=== PATIENT | female | born 1965 | race Caucasian/White ===

== ENCOUNTER → 2016-04-09 | Outpatient (CLI) | payer OTHER ==
--- NOTE | 2016-04-10 07:48 | CT ---
EXAMINATION TYPE: CT chest w con DATE OF EXAM: 04/09/2016 7:26 PM COMPARISON: 10/09/2015 HISTORY: Cough x [address] DLP: 400.00 mGycm, Automated exposure control for dose reduction was used. CONTRAST: Performed injected with 100 mL of Omnipaque 300. TECHNIQUE: Axial images were obtained at 5 mm thick sections. Reconstructed images are reviewed on [facility] computer in the coronal plane. FINDINGS: Portion of the thyroid visualized is normal. No suspicious lung nodules or focal infiltrates are present. Previous nodule within the right midlung superior segment lower lobe, series 3 image 27 lung windows measures 0.4 cm and appears unchanged. No enlarged mediastinal or hilar adenopathy is evident. Some left axillary adenopathy is present. T ascending aorta diameter at the level of the main pulmonary artery is 3.5 cm. The main pulmonary artery diameter at the bifurcation is 2.[address] sections are obtained through the upper abdomen. Multiple hypodensities are scattered with in the liver compatible with hepatic cysts. The largest at the anterior right medial lobe measures 2. 0 cm and 9 multiple additional smaller hypodensities are present to small to reliably classify as sim ple cysts but appears stable from October 02, 2015. Hounsfield units. IMPRESSIONS: 1. Normal Chest CT. 2. Probable hepatic cysts, stable from October 02, 2015 this could be monitored with ultrasound.
== END | disposition home or self-care (01) ==
LOC: RADCTMAIN 18:36
PROVIDERS: ATTEND Internal Medicine
DX: R05 Cough (principal)
CPT/HCPCS: 71260; Q9967

== ENCOUNTER → 2016-06-11 | Outpatient (CLI) | payer OTHER ==
[2016-06-11 14:40] LABS: Basophils % (A) 0 %; CH 31.3; CHCM 33.3; Eosinophils # (A) 0.1 k/uL (0-0.7); Eosinophils % (A) 1 %; HCT 43.3 % (34.0-46.0); HDW 2.31; HGB 14.5 gm/dL (11.4-16.0); Luc # (Auto) 0.15; Luc % (Auto) 2; Lymphocytes # (A) 1.5 k/uL (1.0-4.8); Lymphocytes % (A) 22 %; MCH 31.6 pg (25.0-35.0); MCHC 33.5 g/dL (31.0-37.0); MCV 94.4 fL (80.0-100.0); Mean Platelet Volume 7.5; Monocytes # (A) 0.4 k/uL (0-1.0); Monocytes % (A) 5 %; Neutrophils # (A) 4.9 k/uL (1.3-7.7); Neutrophils % (A) 70 %; RBC 4.59 m/uL (3.80-5.40); RDW 12.5 % (11.5-15.5); WBC (Perox) 7.43
[2016-06-12 13:42] LABS: Alternaria alternata IgE <0.35 kU/L (<0.35); Asperg. fumagatus IgE <0.35 kU/L (<0.35); Asperg. fumagatus IgE Class CLASS 0; Cat Epith & Dander IgE 9.23 kU/L (<0.35); Cat Epith & Dander IgE Class CLASS III; Clad herbarum IgE <0.35 kU/L (<0.35); Clad herbarum IgE Class CLASS 0; Com. Pigweed IgE <0.35 kU/L (<0.35); Com. Pigweed IgE Class CLASS 0; Common Ragweed IgE Class CLASS II; Cow's Milk IgE Class CLASS 0; Dermato. farinae IgE <0.35 kU/L (<0.35); Dermato. farinae IgE Class CLASS 0; House Dust (Greer) IgE 2.34 kU/L (<0.35); House Dust (Greer) IgE Class CLASS II; Maple (Box Elder) IgE <0.35 kU/L (<0.35); Maple (Box Elder) IgE Class CLASS 0; Penicillium notatum IgE Class CLASS 0; Timothy Grass IgE 4.91 kU/L (<0.35); Timothy Grass IgE Class CLASS III
[2016-06-19 23:31] LABS: Alternaria tenius IgG 4.8 mcg/mL (< 13.6); Cladosporium herbarium IgG 28.4 mcg/mL (< 14.7); Phoma ssp. IgG 4.1 mcg/mL (< 6.6); Saccaharomospora viridis Not detected (Not detected); Saccaharopoly. rectivirgula Not detected (Not detected)
== END ==
LOC: LABWHC1 13:52
PROVIDERS: ATTEND Internal Medicine Sleep Medicine
DX: D72.1 Eosinophilia (principal); B44.89 Other forms of aspergillosis
CPT/HCPCS: 36415; 82785; 85025; 86001; 86003; 86606; 86609

== ENCOUNTER → 2017-01-18 | Outpatient (CLI) | payer OTHER ==
--- NOTE | 2017-01-18 18:15 | CT ---
EXAMINATION TYPE: CT chest w con DATE OF EXAM: 01/18/2017 COMPARISON: 04/09/2016 HISTORY: Follow-up solitary pulmonary nodule. CT DLP: 496.00 mGycm Automated exposure control for dose reduction was used. CONTRAST: CT scan of the chest is performed with IV Contrast, patient injected with 100 mL of Omnipaque 300. FINDINGS: The lungs are clear of consolidation. There is no pleural effusion. Heart size is normal. There are several hepatic cysts. There is no mediastinal adenopathy. There are no hilar masses. The ascending a alexys measures up to 3.5 cm in diameter. There is no evidence of dissection. There is no evidence of a pulmonary nodule. The bony thorax appears intact. IMPRESSION: There are stable hepatic cysts compared to old exam. No evidence of a pulmonary nodule.
== END | disposition home or self-care (01) ==
LOC: RADCTMAIN 17:35
PROVIDERS: ATTEND Internal Medicine
DX: R91.1 Solitary pulmonary nodule (principal)
CPT/HCPCS: 71260; Q9967

== ENCOUNTER 2017-10-31 20:54 | Emergency (ER) | payer OTHER ==
[2017-10-31] MEDS ORDERED: ONDANSETRON 4 MG/2 ML VIAL IVP STA (23:09)
[2017-10-31] MEDS ORDERED: SODIUM CHLORIDE 0.9% 1,000 ML IV STA (23:09)
[2017-10-31] MEDS ORDERED: MORPHINE SULFATE 4 MG/ML SYRINGE IV STA (23:09)
[2017-10-31] MEDS ORDERED: IPRATROPIUM-ALBUTEROL 3 ML NEB INHALATION STA (23:10)
--- NOTE | 2017-10-31 23:15 | ED ---
Abdominal Pain HPI - General Chief Complaint: Abdominal Pain Stated Complaint: Abd Pain Time Seen by Provider: 10/31/17 22:58 Source: patient, RN notes reviewed Mode of arrival: wheelchair Limitations: no limitations - History of Present Illness Initial Comments: This is a 52-year-old female who presents to the emergency department with chief complaint of right lower abdominal pain. Patient reports sudden onset of sharp, stabbing pain in her right lower abdomen/groin area. Patient states that the pain was so bad she couldn't even walk. Patient does report a history of kidney stones. She admits to nausea but denies vomiting. Denies fevers or chills. States that she does have diarrhea but has had this for a long time. She denies chest pain or shortness of breath. Patient does report a history of complete hysterectomy. Patient also states that her asthma has been acting up for the past few weeks. She states that she has been wheezing. She does have an albuterol inhaler but has not been using it. - Related Data Home Medications Medication Instructions Recorded Confirmed ALPRAZolam [Xanax] 0.25 mg PO BID PRN 10/21/14 11/30/14 Sertraline [Zoloft] 100 mg PO DAILY 10/21/14 11/30/14 Calcium Carbonate/Vitamin D3 1 each PO BID 11/30/14 11/30/14 [Calcium 600 + Vit D Tablet] Ergocalciferol [Vitamin D2] 50,000 unit PO Q7D 11/30/14 11/30/14 Allergies Allergy/AdvReac Type Severity Reaction Status Date / Time No Known Allergies Allergy Verified 10/31/17 21:09 Review of Systems ROS Statement: Those systems with pertinent positive or pertinent negative responses have been documented in the HPI. ROS Other: All systems not noted in ROS Statement are negative. Past Medical History Past Medical History: No Reported History Additional Past Medical History / Comment(s): osteoporosis History of Any Multi-Drug Resistant Organisms: None Reported Past Surgical History: Hysterectomy, Orthopedic Surgery Past Psychological History: Anxiety, Depression Smoking Status: Never smoker Past Alcohol Use History: Occasional Past Drug Use History: None Reported General Exam - General Exam Comments Initial Comments: General: Awake and alert, well-developed; in mild distress due to pain. Upon entering the room, patient is curled up onto her left side. HEENT: Head atraumatic, normocephalic. Pupils are equal, round and reactive to light. Extraocular movements intact. Oropharynx moist without erythema or exudate. Neck: Supple. Normal ROM. Cardiovascular: Regular rate and rhythm. No murmurs, rubs or gallops. Chest symmetrical. Respiratory: Diffuse wheezes throughout all lung goss. Normal respiratory effort with no use of accessory muscles. Abdomen: Soft, non-distended. Tenderness on palpation of right inguinal region. No McBurney's point tenderness. Voluntary guarding. No rigidity or rebound. Hyperactive bowel sounds in all 4 quadrants. Musculoskeletal: Normal ROM, no tenderness bilateral upper and lower extremities. Ambulating normally. Skin: [place], warm and dry without rashes or lesions. Neurological: Alert and oriented x3. CN II-XII grossly intact. Speech is fluent and answers are appropriate. No focal neuro deficits. Psychiatric: Normal mood and affect. No overt signs of depression or anxiety noted. Limitations: no limitations Course Vital Signs 10/31/17 10/31/17 10/31/17 21:07 23:28 23:38 Temperature 98.2 F Pulse Rate 87 88 92 Respiratory 18 Rate Blood Pressure 138/88 O2 Sat by Pulse 98 Oximetry 11/01/17 01:27 Temperature 98.3 F Pulse Rate 60 Respiratory 17 Rate Blood Pressure 135/63 O2 Sat by Pulse 100 Oximetry Medical Decision Making - Medical Decision Making This is a 52-year-old female who presents to the emergency department with chief complaint of abdominal pain. Patient reports sudden onset of right lower quadrant/groin pain. She describes it as sharp and stabbing. On physical examination, there is tenderness on palpation of right lower inguinal region. No McBurney's point tenderness. Patient denies any fevers or chills, vomiting. She does report diarrhea. Patient does report a history of kidney stones. CBC, CMP were unremarkable. UA revealed trace blood but was otherwise unremarkable. X-ray KUB revealed no acute abnormalities. Patient continued to complain of pain so a computed tomography scan of the abdomen and pelvis without contrast was ordered. This revealed small hepatic cysts, no renal calculi and a normal appendix. Computed tomography scan is unremarkable. These findings were discussed with patient at bedside. She reports improvement in her symptoms since onset. I recommended that she follow up with her primary care provider within 1-2 days and provided contact information for gastroenterology if symptoms persist. Her vital signs have been stable and she is in no acute distress. She will be discharged home at this time. She is in agreement and voices understanding. All questions were answered. Additionally, patient was noted to have a diffuse wheezing on auscultation of the lungs. Patient stated that she does have a history of asthma and it has been acting up for the past couple weeks. A chest x-ray was obtained which revealed no acute abnormalities. Patient was given a DuoNeb treatment in the emergency department and lung sounds improved. Recommended the patient use her albuterol inhaler/nebulizer treatments and follow-up with her primary care provider. She has been 98-100% on room air. No signs of respiratory distress. - Lab Data Result diagrams: 10/31/17 23:10 10/31/17 23:10 Lab Results 10/31/17 10/31/17 10/31/17 Range/Units 23:10 23:10 23:10 WBC 9.3 (3.8-10.6) k/uL RBC 4.93 (3.80-5.40) m/uL Hgb 15.1 (11.4-16.0) gm/dL Hct 44.1 (34.0-46.0) % MCV 89.3 (80.0-100.0) fL MCH 30.6 (25.0-35.0) pg MCHC 34.3 (31.0-37.0) g/dL RDW 12.5 (11.5-15.5) % Plt Count 245 (150-450) k/uL Neutrophils % 55 % Lymphocytes % 24 % Monocytes % 6 % Eosinophils % 13 % Basophils % 1 % Neutrophils # 5.1 (1.3-7.7) k/uL Lymphocytes # 2.2 (1.0-4.8) k/uL Monocytes # 0.6 (0-1.0) k/uL Eosinophils # 1.3 H (0-0.7) k/uL Basophils # 0.1 (0-0.2) k/uL Sodium 141 (137-145) mmol/L Potassium 4.4 (3.5-5.1) mmol/L Chloride 108 H (98-107) mmol/L Carbon Dioxide 24 (22-30) mmol/L Anion Gap 9 mmol/L BUN 8 (7-17) mg/dL Creatinine 0.60 (0.52-1.04) mg/dL Est GFR (CKD-EPI)AfAm >90 (>60 ml/min/1.73 sqM) Est GFR (CKD-EPI)NonAf >90 (>60 ml/min/1.73 sqM) Glucose 92 (74-99) mg/dL Calcium 10.0 (8.4-10.2) mg/dL Total Bilirubin 0.7 (0.2-1.3) mg/dL AST 36 (14-36) U/L ALT 41 (9-52) U/L Alkaline Phosphatase 74 (38-126) U/L Total Protein 7.5 (6.3-8.2) g/dL Albumin 4.7 (3.5-5.0) g/dL Amylase 59 (30-110) U/L Lipase 60 (23-300) U/L Urine Color Light Yellow Urine Appearance Clear (Clear) Urine pH 6.0 (5.0-8.0) Ur Specific [place] 1.005 (1.001-1.035) Urine Protein Negative (Negative) Urine Glucose (UA) Negative (Negative) Urine Ketones 2+ H (Negative) Urine Blood Trace H (Negative) Urine Nitrite Negative (Negative) Urine Bilirubin Negative (Negative) Urine Urobilinogen <2.0 (<2.0) mg/dL Ur Leukocyte Esterase Small H (Negative) Urine RBC 4 (0-5) /hpf Urine WBC 2 (0-5) /hpf Ur Squamous Epith Cells <1 (0-4) /hpf Urine Mucus Rare H (None) /hpf - Radiology Data Radiology results: report reviewed X-ray KUB impression: Nonacute abdomen. No pathologic calcifications. No calcifications over the kidneys. Chest x-ray impression: Normal chest Computed tomography scan abdomen and pelvis without contrast impression: There are a few hepatic cysts. No dilated ducts. No renal stone or obstruction. Renal cysts appear not significantly different than chest computed tomography scan of 10/09/2015 Disposition Clinical Impression: Abdominal pain, Asthma Disposition: HOME SELF-CARE Condition: Good Instructions: Asthma (ED), Abdominal Pain (ED) Additional Instructions: Please continue using your albuterol inhaler as needed. Please do at-home nebulizer treatments. Please follow up with her primary care provider within 1- 2 days. Please follow up with Dr. Owens, gastroenterology for further evaluation of abdominal pain. Return to emergency department if symptoms should worsen or any concerns arise. Is patient prescribed a controlled substance at d/c from ED?: No Referrals: Audrey Conley MD [Primary Care Provider] - 1-2 days Corona Boone MD [STAFF PHYSICIAN] - 1-2 days Time of Disposition: 01:20
[2017-10-31 23:36] LABS: Basophils # (A) 0.1 k/uL (0-0.2); Basophils % (A) 1 %; Eosinophils # (A) 1.3 k/uL (0-0.7); Eosinophils % (A) 13 %; HCT 44.1 % (34.0-46.0); HGB 15.1 gm/dL (11.4-16.0); Lymphocytes # (A) 2.2 k/uL (1.0-4.8); Lymphocytes % (A) 24 %; MCH 30.6 pg (25.0-35.0); MCHC 34.3 g/dL (31.0-37.0); MCV 89.3 fL (80.0-100.0); Mean Platelet Volume 7.6; Monocytes # (A) 0.6 k/uL (0-1.0); Monocytes % (A) 6 %; Neutrophils # (A) 5.1 k/uL (1.3-7.7); Neutrophils % (A) 55 %; Platelet Count 245 k/uL (150-450); RBC 4.93 m/uL (3.80-5.40); RDW 12.5 % (11.5-15.5); WBC 9.3 k/uL (3.8-10.6)
[2017-10-31 23:41] LABS: Appearance,Urine Clear (Clear); Bilirubin,Urine Negative (Negative); Blood,Urine Trace (Negative); Color,Urine Light Yellow; Glucose,Urine (UA) Negative (Negative); Ketones,Urine 2+ (Negative); Leukocyte Esterase,Urine Small (Negative); Mucus,Urine Rare /hpf; Nitrite,Urine Negative (Negative); Protein,Urine Negative (Negative); RBC,Urine 4 /hpf (0-5); Specific Gravity,Urine 1.005 (1.001-1.035); Squamous Epithelial Cell,Urine <1 /hpf (0-4); Urobilinogen,Urine <2.0 mg/dL (<2.0); WBC,Urine 2 /hpf (0-5)
[2017-10-31 23:46] LABS: ALT 41 U/L (9-52); AST 36 U/L (14-36); Albumin 4.7 g/dL (3.5-5.0); Alkaline Phosphatase 74 U/L (38-126); Amylase 59 U/L (30-110); Anion Gap 9 mmol/L; Blood Urea Nitrogen 8 mg/dL (7-17); Carbon Dioxide 24 mmol/L (22-30); Chloride 108 mmol/L (98-107); Glucose 92 mg/dL (74-99); Lipase 60 U/L (23-300); Potassium 4.4 mmol/L (3.5-5.1); Sodium 141 mmol/L (137-145); Total Bilirubin 0.7 mg/dL (0.2-1.3); Total Protein 7.5 g/dL (6.3-8.2)
--- NOTE | 2017-10-31 23:59 | XR ---
EXAMINATION TYPE: XR KUB DATE OF EXAM: 10/31/2017 COMPARISON: 10/31/2017 HISTORY: Right lower quadrant pain TECHNIQUE: 2 upright views FINDINGS: Bowel gas pattern is normal. There is no sign of intestinal obstruction or pneumoperitoneum . Fecal pattern is normal. Lung bases are clear. There are no pathologic calcifications. There are no calcifications over the kidneys. IMPRESSION: Nonacute abdomen.
--- NOTE | 2017-11-01 | XR ---
EXAMINATION TYPE: XR chest 2V DATE OF EXAM: 10/31/2017 COMPARISON: NONE HISTORY: Asthma. Wheezing TECHNIQUE: Frontal and lateral views of the chest are obtained. FINDINGS: Heart and mediastinum are normal. Lungs are clear. Diaphragm is normal. Bony thorax appear s normal. IMPRESSION: Normal chest.
--- NOTE | 2017-11-01 00:52 | CT ---
EXAMINATION TYPE: CT abdomen pelvis wo con DATE OF EXAM: 11/01/2017 COMPARISON: None HISTORY: RLQ pain CT DLP: 245.70 mGycm Automated exposure control for dose reduction was used. TECHNIQUE: Helical acquisition of images was performed from the lung bases through the pelvis. FINDINGS: Lung bases are clear. There is no pleural effusion. Heart size is normal. There are a few cysts in the liver that measure up to 2.3 cm. Bile ducts are not dilated. Gallbladder appears normal. Spleen appears normal. There is no pancreatic mass. There is no adrenal mass. Kidneys have normal size and contour. There is no hydronephrosis. Ureters a re not dilated. There is no retroperitoneal adenopathy. There is no ascites. Bladder distends smoothl y. I see no intestinal wall thickening. There are no dilated loops. Appendix appears normal. Lumbar s pine appears intact. IMPRESSION: THERE ARE A FEW HEPATIC CYSTS. NO DILATED DUCTS. NO RENAL STONE OR OBSTRUCTION. RENAL CYSTS APPEAR NO T SIGNIFICANTLY DIFFERENT THAN CHEST CT SCAN OF 10/09/2015
[2017-11-01 01:29] VITALS: BP 135/63; PULSE 60; RESP 17; TEMP 98.3
== END 2017-11-01 01:29 | disposition home or self-care (01) ==
LOC: EC 20:54
DX: J45.909 Unspecified asthma, uncomplicated (principal); R10.31 Right lower quadrant pain; R11.0 Nausea; K76.89 Other specified diseases of liver; M81.0 Age-related osteoporosis without current pathological fracture; F41.9 Anxiety disorder, unspecified; F32.9 Major depressive disorder, single episode, unspecified; Z90.710 Acquired absence of both cervix and uterus; Z87.442 Personal history of urinary calculi; Z79.899 Other long term (current) drug therapy
CPT/HCPCS: 36415; 94640; 80053; 82150; 83690; 85025; 81001; 71046; 74018; 74176; 99285; 96374; 96375; 96361; J2270; J2405

== ENCOUNTER → 2018-01-18 | Outpatient (CLI) | payer OTHER ==
--- NOTE | 2018-01-18 13:10 | XR ---
EXAMINATION TYPE: XR Hip Complete RT DATE OF EXAM: 01/18/2018 CLINICAL HISTORY: Right hip pain. TECHNIQUE: AP and frogleg views of the right hip are obtained. COMPARISON: Prior bilateral hip x-ray June 14, 2015. FINDINGS: There is no acute fracture/dislocation evident in the right hip. The joint space in the r ight hip appears stable and within normal limits. A few right-sided pelvic phleboliths are seen on cu rrent study. IMPRESSION: As above.
== END | disposition home or self-care (01) ==
LOC: RADXRMAIN 12:43
PROVIDERS: ATTEND Internal Medicine
DX: M25.551 Pain in right hip (principal)
CPT/HCPCS: 73502

== ENCOUNTER → 2018-05-04 | Outpatient (CLI) | payer OTHER ==
[2018-05-04 10:03] LABS: Basophils # (A) 0.1 k/uL (0-0.2); Basophils % (A) 1 %; Eosinophils # (A) 0.4 k/uL (0-0.7); Eosinophils % (A) 7 %; HCT 43.4 % (34.0-46.0); HGB 14.3 gm/dL (11.4-16.0); Lymphocytes # (A) 1.6 k/uL (1.0-4.8); Lymphocytes % (A) 27 %; MCH 31.4 pg (25.0-35.0); MCHC 32.9 g/dL (31.0-37.0); MCV 95.4 fL (80.0-100.0); Mean Platelet Volume 7.3; Monocytes # (A) 0.4 k/uL (0-1.0); Monocytes % (A) 6 %; Neutrophils # (A) 3.2 k/uL (1.3-7.7); Neutrophils % (A) 56 %; Platelet Count 196 k/uL (150-450); RBC 4.55 m/uL (3.80-5.40); RDW 12.8 % (11.5-15.5); WBC 5.7 k/uL (3.8-10.6)
[2018-05-04 16:50] LABS: Hemoglobin A1C 5.5 % (4.0-6.0)
[2018-05-04 17:54] LABS: T4, Free (Free Thyroxine) 1.1 ng/dL (0.80-1.80)
[2018-05-04 17:56] LABS: Albumin 4.4 g/dL (3.80-4.90); Albumin/Globulin Ratio 2.32 (1.60-3.17); Anion Gap 6.7 mmol/L (4.00-12.00); Carbon Dioxide 30.3 mmol/L (21.6-31.8); Globulin 1.9 g/dL (1.6-3.3); LDL Cholesterol,Calculated 115.8 mg/dL (0.0-131.0); Potassium 4.6 mmol/L (3.5-5.5); Total Bilirubin 0.7 mg/dL (0.2-1.2); Total Protein 6.3 g/dL (6.2-8.2); VLDL Calculation 13.2 mg/dL (5.00-40.00)
== END | disposition home or self-care (01) ==
LOC: LABWHC1 09:20
PROVIDERS: ATTEND Internal Medicine
DX: Z00.00 Encounter for general adult medical examination without abnormal findings (principal); M81.0 Age-related osteoporosis without current pathological fracture; F32.89 Other specified depressive episodes; J45.998 Other asthma
CPT/HCPCS: 36415; 80053; 80061; 82306; 82550; 83036; 84439; 84443; 85025

== ENCOUNTER → 2018-06-21 | Outpatient (CLI) | payer OTHER ==
[2018-06-21 19:18] LABS: Total Protein,CSF 20 mg/dL (12-60)
[2018-06-21 20:05] LABS: Appearance,CSF Clear; CSF Tube Number 4; CSF Tube Volume 3; Nucleated Cells, CSF 0 u/L (0-5); Red Blood Cell,CSF 0 u/L (0-10)
== END | disposition home or self-care (01) ==
LOC: LABWHC1 13:16
PROVIDERS: ATTEND Nurse Practitioner Acute Care
DX: R90.82 White matter disease, unspecified (principal); R42 Dizziness and giddiness
CPT/HCPCS: 36415; 82040; 82042; 82784; 83873; 83916; 84157; 87801; 89050

== ENCOUNTER 2018-12-19 14:40 | Emergency (ER) | payer OTHER ==
[2018-12-19 14:44] VITALS: TEMP 98.2
[2018-12-19] MEDS ORDERED: IPRATROPIUM-ALBUTEROL 3 ML NEB INHALATION STA (15:02)
[2018-12-19] MEDS ORDERED: methylPREDNISolone SOD SUCCI 125 MG/2 ML VIAL IV STA (15:02)
[2018-12-19] MEDS ORDERED: SODIUM CHLORIDE 0.9% 500 ML 500 ML IV STA (15:02)
[2018-12-19 15:30] VITALS: RESP 18
[2018-12-19 15:32] LABS: Basophils # (A) 0.2 k/uL (0-0.2); Basophils % (A) 2 %; Eosinophils % (A) 10 %; HCT 45.3 % (34.0-46.0); HGB 15.3 gm/dL (11.4-16.0); Lymphocytes % (A) 22 %; MCH 32.3 pg (25.0-35.0); MCHC 33.8 g/dL (31.0-37.0); MCV 95.5 fL (80.0-100.0); Mean Platelet Volume 7.1; Monocytes # (A) 0.5 k/uL (0-1.0); Monocytes % (A) 5 %; Neutrophils # (A) 5.5 k/uL (1.3-7.7); Neutrophils % (A) 59 %; Platelet Count 282 k/uL (150-450); RBC 4.75 m/uL (3.80-5.40); RDW 12.7 % (11.5-15.5); WBC 9.3 k/uL (3.8-10.6)
[2018-12-19 15:41] LABS: ALT 33 U/L (9-52); AST 31 U/L (14-36); African American GFR (CKD) >90 (>60 ml/min/1.73 sqM); Albumin 4.7 g/dL (3.5-5.0); Alkaline Phosphatase 85 U/L (38-126); Anion Gap 13 mmol/L; Blood Urea Nitrogen 10 mg/dL (7-17); Calcium 10.3 mg/dL (8.4-10.2); Carbon Dioxide 23 mmol/L (22-30); Chloride 107 mmol/L (98-107); Glucose 80 mg/dL (74-99); INR 0.9 (<1.2); Magnesium 1.9 mg/dL (1.6-2.3); Potassium 3.9 mmol/L (3.5-5.1); Prothrombin Time 10.2 sec (9.0-12.0); Sodium 143 mmol/L (137-145); Total Bilirubin 0.7 mg/dL (0.2-1.3); Total Protein 7.2 g/dL (6.3-8.2)
--- NOTE | 2018-12-19 15:50 | XR ---
EXAMINATION TYPE: XR chest 2V DATE OF EXAM: 12/19/2018 COMPARISON: Chest x-ray October 31, 2017. HISTORY: History of asthma shortness breath and cough. TECHNIQUE: Frontal and lateral views of the chest are obtained. FINDINGS: There is chronic parenchymal changes without suspicious focal air space opacity, pleural e ffusion, or pneumothorax seen. The cardiac silhouette size is within normal limits. Surgical changes left shoulder region are present. IMPRESSION: Chronic changes without acute pulmonary process.
[2018-12-19] MEDS ORDERED: ASPIRIN 81 MG PO STA (16:03)
--- NOTE | 2018-12-19 16:03 | ED ---
General Adult HPI - General Chief complaint: Shortness of Breath Stated complaint: SOB Time Seen by Provider: 12/19/18 14:49 Source: patient, RN notes reviewed Mode of arrival: wheelchair Limitations: no limitations - History of Present Illness Initial comments: 53-year-old female with a past medical history of asthma presents to the emergency department for a chief complaint of shortness of breath 3 days. Patient states Wednesday she developed a cough and started to have shortness of breath consistent with asthma. Patient states is usually improves but it did not and has been persistent for the past 3 days. States it is worse than her normal asthma exacerbations. Patient has been using her nebulizer 4 times per day but is still having wheezing. Patient denies any productive cough. Denies fevers or chills.Patient has no other complaints at this time including chest pain, abdominal pain, nausea or vomiting, headache, or visual changes. - Related Data Home Medications Medication Instructions Recorded Confirmed ALPRAZolam [Xanax] 0.25 mg PO Q12H PRN 10/21/14 12/19/18 Albuterol Nebulized [Ventolin 2.5 mg INHALATION RT-Q4H PRN 12/19/18 12/19/18 Nebulized] Albuterol Sulfate [Ventolin HFA] 1 - 2 puff INHALATION RT-Q6H PRN 12/19/18 12/19/18 Atorvastatin [Lipitor] 20 mg PO HS 12/19/18 12/19/18 Cholecalciferol (Vitamin D3) 2,000 unit PO BID 12/19/18 12/19/18 [Vitamin D3] DULoxetine HCL [Cymbalta] 30 mg PO DAILY 12/19/18 12/19/18 Fluticasone Nasal [place] [Flonase 1 spr EA NOSTRIL DAILY 12/19/18 12/19/18 Nasal [place]] Gabapentin [Neurontin] 100 mg PO TID 12/19/18 12/19/18 Loratadine [Claritin] 10 mg PO DAILY 12/19/18 12/19/18 Multivitamins, Thera [Multivitamin 1 tab PO DAILY 12/19/18 12/19/18 (formulary)] Naproxen 500 mg PO BID 12/19/18 12/19/18 Rizatriptan Benzoate [Maxalt] 10 mg PO DAILY PRN 12/19/18 12/19/18 Verapamil HCl [Calan] 120 mg PO DAILY 12/19/18 12/19/18 Previous Rx's Medication Instructions Recorded Ipratropium-Albuterol Nebulize 3 ml INHALATION QID PRN #20 neb 12/19/18 [Duoneb 0.5 mg-3 mg/3 ml Soln] predniSONE 40 mg PO DAILY #10 tab 12/19/18 Allergies Allergy/AdvReac Type Severity Reaction Status Date / Time No Known Allergies Allergy Verified 12/19/18 14:59 Review of Systems ROS Statement: Those systems with pertinent positive or pertinent negative responses have been documented in the HPI. ROS Other: All systems not noted in ROS Statement are negative. Past Medical History Past Medical History: Asthma Additional Past Medical History / Comment(s): osteoporosis History of Any Multi-Drug Resistant Organisms: None Reported Past Surgical History: Hysterectomy, Orthopedic Surgery Past Psychological History: Anxiety, Depression Smoking Status: Never smoker Past Alcohol Use History: Occasional Past Drug Use History: None Reported General Exam Limitations: no limitations General appearance: alert, in no apparent distress Head exam: Present: atraumatic, normocephalic, normal inspection Eye exam: Present: normal appearance, PERRL, EOMI. Absent: scleral icterus, conjunctival injection, periorbital swelling ENT exam: Present: normal exam, normal oropharynx, mucous membranes moist, TM's normal bilaterally, normal external ear exam Neck exam: Present: normal inspection, full ROM. Absent: tenderness, meningismus, lymphadenopathy Respiratory exam: Present: wheezes (Significant wheezing noted in bilateral lung goss.), chest wall tenderness. Absent: respiratory distress, rales, rhonchi, stridor, accessory muscle use Cardiovascular Exam: Present: regular rate, normal rhythm, normal heart sounds. Absent: systolic murmur, diastolic murmur, rubs, gallop, clicks GI/Abdominal exam: Present: soft, normal bowel sounds. Absent: distended, tenderness, guarding, rebound, rigid Neurological exam: Present: alert Course Vital Signs 12/19/18 12/19/18 12/19/18 14:42 15:14 15:28 Temperature 98.2 F Pulse Rate 80 87 88 Respiratory 22 16 18 Rate Blood Pressure 166/82 O2 Sat by Pulse 98 Oximetry EKG Findings - EKG Comments: EKG Findings:: Normal sinus rhythm, ventricular rate 81, DC interval 138, QTC 448 Medical Decision Making - Medical Decision Making HPI and physical exam as documented. Vitals are stable. Patient is 98% room air. CBC CMP unremarkable. Patient has reproducible chest pain that is worse with movement and only when she coughs. Chest wall is tender. Troponin however is negative and EKG appears unremarkable. No ST elevation or depression. Chest x-ray shows chronic changes without acute pulmonary process. Patient was given 2 DuoNeb and steroids. Patient is especially feeling significantly better at this time. Patient is agreeable to discharge home and agrees to return if she has worsening symptoms. I discussed this case with attending Dr. Contreras who agrees with this assessment and treatment plan. She will to be discharged home with steroids and DuoNeb. - Lab Data Result diagrams: 12/19/18 15:22 12/19/18 15:22 Lab Results 12/19/18 12/19/18 12/19/18 Range/Units 15:22 15:22 15:22 WBC 9.3 (3.8-10.6) k/uL RBC 4.75 (3.80-5.40) m/uL Hgb 15.3 (11.4-16.0) gm/dL Hct 45.3 (34.0-46.0) % MCV 95.5 (80.0-100.0) fL MCH 32.3 (25.0-35.0) pg MCHC 33.8 (31.0-37.0) g/dL RDW 12.7 (11.5-15.5) % Plt Count 282 (150-450) k/uL Neutrophils % 59 % Lymphocytes % 22 % Monocytes % 5 % Eosinophils % 10 % Basophils % 2 % Neutrophils # 5.5 (1.3-7.7) k/uL Lymphocytes # 2.0 (1.0-4.8) k/uL Monocytes # 0.5 (0-1.0) k/uL Eosinophils # 1.0 H (0-0.7) k/uL Basophils # 0.2 (0-0.2) k/uL PT (9.0-12.0) sec INR (<1.2) APTT (22.0-30.0) sec Sodium 143 (137-145) mmol/L Potassium 3.9 (3.5-5.1) mmol/L Chloride 107 (98-107) mmol/L Carbon Dioxide 23 (22-30) mmol/L Anion Gap 13 mmol/L BUN 10 (7-17) mg/dL Creatinine 0.76 (0.52-1.04) mg/dL Est GFR (CKD-EPI)AfAm >90 (>60 ml/min/1.73 sqM) Est GFR (CKD-EPI)NonAf >90 (>60 ml/min/1.73 sqM) Glucose 80 (74-99) mg/dL Calcium 10.3 H (8.4-10.2) mg/dL Magnesium 1.9 (1.6-2.3) mg/dL Total Bilirubin 0.7 (0.2-1.3) mg/dL AST 31 (14-36) U/L ALT 33 (9-52) U/L Alkaline Phosphatase 85 (38-126) U/L Troponin I (0.000-0.034) ng/mL NT-Pro-B Natriuret Pep 48 pg/mL Total Protein 7.2 (6.3-8.2) g/dL Albumin 4.7 (3.5-5.0) g/dL 12/19/18 12/19/18 Range/Units 15:22 15:22 WBC (3.8-10.6) k/uL RBC (3.80-5.40) m/uL Hgb (11.4-16.0) gm/dL Hct (34.0-46.0) % MCV (80.0-100.0) fL MCH (25.0-35.0) pg MCHC (31.0-37.0) g/dL RDW (11.5-15.5) % Plt Count (150-450) k/uL Neutrophils % % Lymphocytes % % Monocytes % % Eosinophils % % Basophils % % Neutrophils # (1.3-7.7) k/uL Lymphocytes # (1.0-4.8) k/uL Monocytes # (0-1.0) k/uL Eosinophils # (0-0.7) k/uL Basophils # (0-0.2) k/uL PT 10.2 (9.0-12.0) sec INR 0.9 (<1.2) APTT 26.0 (22.0-30.0) sec Sodium (137-145) mmol/L Potassium (3.5-5.1) mmol/L Chloride (98-107) mmol/L Carbon Dioxide (22-30) mmol/L Anion Gap mmol/L BUN (7-17) mg/dL Creatinine (0.52-1.04) mg/dL Est GFR (CKD-EPI)AfAm (>60 ml/min/1.73 sqM) Est GFR (CKD-EPI)NonAf (>60 ml/min/1.73 sqM) Glucose (74-99) mg/dL Calcium (8.4-10.2) mg/dL Magnesium (1.6-2.3) mg/dL Total Bilirubin (0.2-1.3) mg/dL AST (14-36) U/L ALT (9-52) U/L Alkaline Phosphatase (38-126) U/L Troponin I <0.012 (0.000-0.034) ng/mL NT-Pro-B Natriuret Pep pg/mL Total Protein (6.3-8.2) g/dL Albumin (3.5-5.0) g/dL Disposition Clinical Impression: Asthma exacerbation Disposition: HOME SELF-CARE Condition: Good Instructions (If sedation given, give patient instructions): Asthma (ED) Additional Instructions: Please take prednisone as directed starting tomorrow. Use breathing treatments as directed. Follow-up with primary care in 1-2 days. Return to the emergency department if you have any worsening symptoms. Prescriptions: Ipratropium-Albuterol Nebulize [Duoneb 0.5 mg-3 mg/3 ml Soln] 3 ml INHALATION QID PRN #20 neb PRN Reason: Shortness Of Breath predniSONE 40 mg PO DAILY #10 tab Is patient prescribed a controlled substance at d/c from ED?: No Referrals: Audrey Conley MD [Primary Care Provider] - 1-2 days Time of Disposition: 16:49
[2018-12-19 17:22] VITALS: BP 149/92; PULSE 89
== END 2018-12-19 17:21 | disposition home or self-care (01) ==
LOC: EC 14:40
DX: J45.901 Unspecified asthma with (acute) exacerbation (principal); F41.9 Anxiety disorder, unspecified; F32.9 Major depressive disorder, single episode, unspecified; Z79.899 Other long term (current) drug therapy
CPT/HCPCS: 36415; 94640; 83880; 80053; 83735; 84484; 85025; 85610; 85730; 71046; 99285; 96374; 96361; J2930

== ENCOUNTER → 2019-02-24 | Outpatient (CLI) | payer OTHER ==
--- NOTE | 2019-02-24 14:38 | FL ---
EXAMINATION TYPE: FL barium swallow w video DATE OF EXAM: 02/24/2019 COMPARISON: NONE HISTORY: Dysphasia TECHNIQUE: Fluoroscopy. FINDINGS: Fluoroscopic guidance was provided for the procedure performed in conjunction with the [facility] [place] pathology department. Please see complete report forthcoming from the Speech Pathology departmen t. Various consistencies from thin liquid to solids were administered. Fluoroscopy time 52 seconds. Number of images: 0. No aspiration or penetration was evident. No significant pooling was observed in the vallecula. There was normal propulsion of the bolus. IMPRESSION: 1. Normal modified barium swallow.
== END ==
LOC: RADFLMAIN 10:48
PROVIDERS: ATTEND Psychiatry & Neurology Neurology
DX: R13.10 Dysphagia, unspecified (principal)
CPT/HCPCS: 74230

== ENCOUNTER → 2019-03-02 | Outpatient (CLI) | payer OTHER ==
[2019-03-03 13:41] LABS: Latex IgE Class CLASS 0
[2019-03-03 13:42] LABS: Alt. alternata IgE Class CLASS 0; Alternaria alternata IgE <0.10 kU/L (<0.10); Asperg. fumagatus IgE <0.10 kU/L (<0.10); Asperg. fumagatus IgE Class CLASS 0; Candida albicans IgE Class CLASS 0; Clad herbarum IgE <0.10 kU/L (<0.10); Clad herbarum IgE Class CLASS 0; Mucor racemosus IgE <0.10 kU/L (<0.10); Mucor racemosus IgE Class CLASS 0; Penicillium chrysogenum IgE <0.10 kU/L (<0.10); Penicillium chrysogenum IgE Cl CLASS 0
== END | disposition home or self-care (01) ==
LOC: LABWHC1 13:24
PROVIDERS: ATTEND Internal Medicine Sleep Medicine
DX: B44.81 Allergic bronchopulmonary aspergillosis (principal)
CPT/HCPCS: 36415; 86001; 86003; 86606; 86609

== ENCOUNTER → 2019-08-18 | Outpatient (CLI) | payer OTHER ==
[2019-08-18 16:17] LABS: Basophils % (A) 0 %; Eosinophils # (A) 0.2 k/uL (0-0.7); Eosinophils % (A) 3 %; HGB 13.4 gm/dL (11.4-16.0); Lymphocytes % (A) 27 %; MCH 30.1 pg (25.0-35.0); MCHC 31.8 g/dL (31.0-37.0); MCV 94.6 fL (80.0-100.0); Monocytes # (A) 0.4 k/uL (0-1.0); Monocytes % (A) 6 %; Neutrophils # (A) 4.5 k/uL (1.3-7.7); Neutrophils % (A) 62 %; Platelet Count 220 k/uL (150-450); RBC 4.44 m/uL (3.80-5.40); RDW 12.5 % (11.5-15.5); WBC 7.3 k/uL (3.8-10.6)
[2019-08-18 23:50] LABS: African American GFR (CKD) 114.6 (60.0-200.0); Albumin 4.7 g/dL (3.80-4.90); Albumin/Globulin Ratio 2.76 (1.60-3.17); Anion Gap 8.9 mmol/L (4.00-12.00); BUN/Creat Ratio 12.86 Ratio (12.00-20.00); Bilirubin, Conjugated 0.2 mg/dL (0.20-0.40); Bilirubin,Unconjugated 0.4 mg/dL; Calcium 9.5 mg/dL (8.7-10.3); Carbon Dioxide 27.1 mmol/L (21.6-31.8); Globulin 1.7 g/dL (1.6-3.3); Non-African American GFR(CKD) 98.9 (60.0-200.0); Potassium 4.1 mmol/L (3.5-5.5); Total Bilirubin 0.6 mg/dL (0.2-1.2); Total Protein 6.4 g/dL (6.2-8.2)
[2019-08-18 23:58] LABS: T4, Free (Free Thyroxine) 1.2 ng/dL (0.80-1.80)
== END | disposition home or self-care (01) ==
LOC: LABWHC1 14:21
PROVIDERS: ATTEND Nurse Practitioner Acute Care
DX: E55.9 Vitamin D deficiency, unspecified (principal); R53.83 Other fatigue; G35 Multiple sclerosis
CPT/HCPCS: 36415; 80053; 82248; 82306; 82607; 84207; 84439; 84443; 84481; 85025

== ENCOUNTER → 2020-03-18 | Outpatient (CLI) | payer OTHER ==
[2020-03-18 14:15] LABS: Basophils % (A) 1 %; Eosinophils # (A) 0.3 k/uL (0-0.7); Eosinophils % (A) 6 %; HCT 38.7 % (34.0-46.0); HGB 12.9 gm/dL (11.4-16.0); Lymphocytes # (A) 1.5 k/uL (1.0-4.8); Lymphocytes % (A) 28 %; MCHC 33.3 g/dL (31.0-37.0); MCV 93.1 fL (80.0-100.0); Mean Platelet Volume 7.5; Monocytes # (A) 0.4 k/uL (0-1.0); Monocytes % (A) 7 %; Neutrophils % (A) 57 %; Platelet Count 195 k/uL (150-450); RBC 4.15 m/uL (3.80-5.40); RDW 12.2 % (11.5-15.5); WBC 5.3 k/uL (3.8-10.6)
[2020-03-18 19:58] LABS: African American GFR (CKD) 120.6 (60.0-200.0); Albumin 4.7 g/dL (3.80-4.90); Albumin/Globulin Ratio 3.36 (1.60-3.17); Anion Gap 7.8 mmol/L (4.00-12.00); BUN/Creat Ratio 18.33 Ratio (12.00-20.00); Calcium 9.4 mg/dL (8.7-10.3); Carbon Dioxide 30.2 mmol/L (21.6-31.8); Globulin 1.4 g/dL (1.6-3.3); Non-African American GFR(CKD) 104.1 (60.0-200.0); Potassium 4.2 mmol/L (3.5-5.5); Total Bilirubin 0.3 mg/dL (0.3-1.2); Total Protein 6.1 g/dL (6.2-8.2)
== END | disposition home or self-care (01) ==
LOC: LABWHC1 12:44
PROVIDERS: ATTEND Nurse Practitioner Acute Care
DX: G35 Multiple sclerosis (principal); E55.9 Vitamin D deficiency, unspecified; R53.83 Other fatigue
CPT/HCPCS: 36415; 80053; 82306; 82607; 85025; 86787

== ENCOUNTER → 2020-04-18 | Outpatient (CLI) | payer OTHER ==
[2020-04-18 11:17] LABS: Basophils # (A) 0.02 X 10*3/uL (0.00-0.10); Basophils % (A) 0.4 %; Eosinophils # (A) 0.72 X 10*3/uL (0.04-0.35); Eosinophils % (A) 13.1 %; HCT 40.5 % (37.2-46.3); HGB 13.3 g/dL (12.0-15.0); Lymphocytes # (A) 1.17 X 10*3/uL (0.90-5.00); Lymphocytes % (A) 21.2 %; MCH 30.2 pg (27.0-32.0); MCHC 32.8 g/dL (32.0-37.0); Mean Platelet Volume 10.8 fL (9.5-12.2); Monocytes # (A) 0.65 X 10*3/uL (0.20-1.00); Monocytes % (A) 11.8 %; Neutrophils # (A) 2.93 X 10*3/uL (1.80-7.70); Neutrophils % (A) 53.1 %; Platelet Count 185 X 10*3/uL (140-440); RDW 12.7 % (11.5-14.5); WBC 5.51 X 10*3/uL (4.50-10.00)
[2020-04-18 11:56] LABS: % Iron Saturation 13.65 (12.00-45.00); African American GFR (CKD) 114.6 (60.0-200.0); Albumin 4.9 g/dL (3.80-4.90); Albumin/Globulin Ratio 3.77 (1.60-3.17); Anion Gap 13.5 mmol/L (4.00-12.00); BUN/Creat Ratio 24.29 Ratio (12.00-20.00); Calcium 9.6 mg/dL (8.7-10.3); Carbon Dioxide 27.5 mmol/L (21.6-31.8); Globulin 1.3 g/dL (1.6-3.3); Non-African American GFR(CKD) 98.9 (60.0-200.0); Potassium 4.4 mmol/L (3.5-5.5); Total Bilirubin 0.4 mg/dL (0.2-1.2); Total Protein 6.2 g/dL (6.2-8.2)
[2020-04-18 12:05] LABS: Ferritin 128.6 ng/mL (10.0-291.0)
== END | disposition home or self-care (01) ==
LOC: LABWHC1 08:27
PROVIDERS: ATTEND Nurse Practitioner Acute Care
DX: G35 Multiple sclerosis (principal); E55.9 Vitamin D deficiency, unspecified; R53.83 Other fatigue; Z51.81 Encounter for therapeutic drug level monitoring; Z79.899 Other long term (current) drug therapy
CPT/HCPCS: 36415; 80053; 82306; 82607; 82728; 83540; 83550; 84466; 85025

== ENCOUNTER → 2020-04-29 | Outpatient (CLI) | payer OTHER ==
[2020-04-29 21:57] LABS: HCT 40.2 % (37.2-46.3); HGB 12.5 g/dL (12.0-15.0); MCH 29.7 pg (27.0-32.0); MCHC 31.1 g/dL (32.0-37.0); MCV 95.5 fL (80.0-97.0); Platelet Count 259 X 10*3/uL (140-440); RBC 4.21 X 10*6/uL (4.10-5.20); RDW 12.8 % (11.5-14.5); WBC 5.41 X 10*3/uL (4.50-10.00)
[2020-04-29 22:50] LABS: African American GFR (CKD) 114.6 (60.0-200.0); Albumin 4.9 g/dL (3.80-4.90); Albumin/Globulin Ratio 3.5 (1.60-3.17); Anion Gap 9.6 mmol/L (4.00-12.00); Calcium 9.8 mg/dL (8.7-10.3); Carbon Dioxide 27.4 mmol/L (21.6-31.8); Chol/HDL Ratio 3.36; Globulin 1.4 g/dL (1.6-3.3); Non-African American GFR(CKD) 98.9 (60.0-200.0); Potassium 4.6 mmol/L (3.5-5.5); Total Bilirubin 0.7 mg/dL (0.2-1.2); Total Protein 6.3 g/dL (6.2-8.2)
[2020-04-29 23:22] LABS: Hemoglobin A1C 5.3 % (4.0-6.0)
== END | disposition home or self-care (01) ==
LOC: LABWHC1 12:33
PROVIDERS: ATTEND Internal Medicine
DX: I10 Essential (primary) hypertension (principal); E55.9 Vitamin D deficiency, unspecified; G35 Multiple sclerosis; Z13.220 Encounter for screening for lipoid disorders; Z13.29 Encounter for screening for other suspected endocrine disorder; Z51.81 Encounter for therapeutic drug level monitoring
CPT/HCPCS: 36415; 80053; 80061; 82306; 83036; 84443; 85027

== ENCOUNTER → 2020-07-05 | Outpatient (CLI) | payer OTHER | END | disposition home or self-care (01) | LOC: LABWHC1 07:24 | PROVIDERS: ATTEND Nurse Practitioner Acute Care | DX: G35 Multiple sclerosis (principal) | CPT/HCPCS: 36415; 86480 ==